=== PATIENT | female | born 1955 | race Caucasian/White ===

== ENCOUNTER → 2019-06-24 | Day surgery (SDC) | payer OTHER, MEDICARE ==
[~2019-06-24] MED LIST: BSS OPTHALMIC SOL 15 ML BOT OPTH ONE; BUPIVACAINE 0.25% PF 10 ML VIAL ONE; CYCLOPENTOLATE 1% OPTH 2 ML ONE; CYCLOPENTOLATE 1% OPTH 2 ML OPTH ONE; FENTANYL CITR 100 MCG/2 ML ONE; LIDOCAINE 2% MPF 5 ML VIAL ONE; LIDOCAINE HCL/PF 3.5% OPTH GEL ONE; MIDAZOLAM HCL 2 MG/2 ML INJ ONE; NA CHLORIDE 0.9% 500 ML ONE; NS 0.9% VIAL 10 ML ONE; PHENYLEPHRINE 10% OPTH 5ML ONE; PHENYLEPHRINE 10% OPTH 5ML OPTH ONE
--- OUTSIDE RECORDS SUMMARY | 2019-06-24 07:38 | XMS REPORT ---
:1955 [facility] Address [address] [place] [address] Dr. Salguero. [address] [place] [id number] Care Team Providers Name Role Phone Unavailable Unavailable Unavailable Problems This patient has no known problems. Allergies, Adverse Reactions, Alerts This patient has no known allergies or adverse reactions. Medications This patient has no known medications.
[2019-06-24] MEDS: LIDOCAINE HCL/PF 3.5% OPTH GEL OPTH ONE ×2 (08:45→09:31)
[2019-06-24] MEDS: BALANCED SALT IRRIG PLAIN 500 ML BTL IRR ONE ×2 (09:50→10:03)
[2019-06-24] MEDS: EPINEPHRINE/PF 1 MG/ML AMP ONE ×2 (09:50→10:03)
[2019-06-24] MEDS: LIDOCAINE 1% MPF 2 ML AMPULE ONE ×2 (09:51→10:03)
[2019-06-24] MEDS: MOXIFLOXACIN HCL 10 DROPS/ML **OR USE OPTH ONE ×2 (09:52→10:06)
[2019-06-24] MEDS: TETRACAINE HCL 0.5% 4ML OPTH ONE ×2 (09:52→09:59)
[2019-06-24] MEDS: DUOVISC 1 KIT OPTH ONE ×2 (09:53→10:05)
--- NOTE | 2019-06-24 10:26 | P.BOP ---
Preoperative diagnosis: Nuclear sclerotic and cortical cataract OS Postoperative diagnosis: Same Primary procedure: Phacoemulsification with IOL OS Estimated blood loss: None Anesthesia: Local (Topical with anesthesia for cataract surgery) Complications: None Implants: ZCB00 +22.5 Transferred to: Other (Day surgery) Condition: Good
--- NOTE | 2019-06-24 21:42 | OP ---
Date of Procedure: 06/24/2019 Surgeon: Jessica Hay MD Anesthesiologist: Chetan Nunes CRNA and Mati Lyn MD Preoperative Diagnosis: Nuclear and cortical cataract, left eye. Operation Performed: Phacoemulsification with intraocular lens implant, left eye. Anesthesia: Per cataract surgery. Complications: None. Description Of Procedure: In day surgery, the patient was prepped with Betadine and draped. A conju nctival incision was made in the inferior nasal quadrant with Ana scissors. A sub-Tenon block c onsisting of a 1:1 mixture of 2% Xylocaine and 0.25% bupivacaine was placed through the conjunctival incision with a blunt cannula. A Honan balloon was placed over the eye and the patient was transferr ed to the operating room. In the operating room the patient was prepped and draped in the usual sterile fashion for ophthalmic surgery. A lid speculum was placed in the left eye. Two paracentesis sites were made superiorly and inferiorly in the limbal cornea. Viscoat was placed in the anterior chamber and a crescent blade wa s used to make a corneal groove and tunnel, and a keratome was used to enter the anterior chamber. P rovisc was placed in the anterior chamber and a 360 degree capsulotomy was performed with a cystitome . The lens was hydrodissected with BSS and rotated freely. The lens was removed with a stop and cho p technique. A 6.04 phaco CDE was used to remove the lens. Residual cortex was removed with the irr igation and aspiration. Provisc was placed in the capsular bag. A ZCB00, +22.5 lens was placed in t he capsular bag without complications. Irrigation and aspiration were used to remove residual viscoe lastic. The paracentesis sites were hydrated with BSS. The wound and paracentesis sites were inspec kwame and found to be watertight. Vigamox 0.07 cc was placed intracamerally at the end of the procedur e. The eye was irrigated with balanced salt solution. The eye was patched with a soft cotton patch and Ramsey metal shield. The patient was returned to day surgery in good condition. Comments: Akten was placed in the eye in Day Surgery and irrigated out of the eye with BSS in the OR . Preservative-free 1% lidocaine was placed in the anterior chamber prior to Viscoat. Discharge Instructions: Ms. Bolton was discharged to home in good condition. She is to follow up [facility] Dr. Hay. JAIDEN/DENNYS Voice ID: [id number] Report ID: [id number]
== END | disposition home or self-care (01) ==
LOC: OR 07:34
PROVIDERS: ATTEND Ophthalmology Retina Specialist
PROC: 08RK3JZ Replacement of Left Lens with Synthetic Substitute, Percutaneous Approach (ICD-10-PCS; principal; 2019-06-24 09:30)
DX: H25.12 Age-related nuclear cataract, left eye (principal); H25.012 Cortical age-related cataract, left eye; J44.9 Chronic obstructive pulmonary disease, unspecified; M79.7 Fibromyalgia; E07.9 Disorder of thyroid, unspecified; E78.00 Pure hypercholesterolemia, unspecified; M19.90 Unspecified osteoarthritis, unspecified site; G25.81 Restless legs syndrome; Z87.891 Personal history of nicotine dependence; Z82.49 Family history of ischemic heart disease and other diseases of the circulatory system; Z83.3 Family history of diabetes mellitus; Z80.9 Family history of malignant neoplasm, unspecified
CPT/HCPCS: 66984; J0171; J2250; J3010; J2001

== ENCOUNTER 2021-10-11 13:24 | Emergency (ER) | payer OTHER, MEDICARE ==
--- OUTSIDE RECORDS SUMMARY | 2021-10-11 13:27 | XMS REPORT | Continuity of Care Document ---
:1955 Author Organization [facility] t Address [address] [place] [address] Care Team Providers Name Role Phone Simone Fisher MD Primary Care Physician Nic SPIVEY Attending Clinician Unavailable Nic Spivey MD Attending Clinician Payers Payer Name Policy Type Policy Number Effective Date Expiration Date S ourmax MEDICARE PART A \T\ [id number] 2018 B 00:00:00 [facility] [id number] 2020 MEDICARE SUPPLEMENT 00:00:00 Problems Condition Condition Condition Status Onset Resolution Last Treating Co mments Source Name Details Category Date Date Treatment Clinician Date COPD COPD Disease Active 2015-11 Univers exacerbati exacerbati 2-02 it y of on on 00:00: [address] COPD COPD Disease Active 2015-11 Univers (chronic (chronic 2-02 [place] Medical pulmonary pulmonary Bran ch disease) disease) Allergies, Adverse Reactions, Alerts Allergy Allergy Status Severity Reaction(s) Onset Inactive Treating Comm ents Source Name Type Date Date Clinician CLOBETAS DRUG Active Rash Univers OL-EMOLL 7-17 ity of IENT 00:00: [address] Cl[place] Propensi Active Rash Univer s ol-Emoll ty to 717 ity of ient adverse 00:00: [place] reaction 00 Medical s Branch Social History Social Habit Start Date Stop Date Quantity Comments Source History of tobacco Cigarette Smoker University of use [facility] Exposure to Not sure University of SARS-CoV-2 (event) [facility] Alcohol intake 2021-10-08 2021-10-08 0 /d University of 00:00:00 00:00:00 [facility] Cigarettes smoked 2021-04-26 2021-04-26 Univers ity of current (pack per 00:00:00 00:00:00 [place] ) - Reported Branch Tobacco use and 2021-04-26 2021-04-26 Never used Universit y of exposure 00:00:00 00:00:00 [facility] Tobacco Comment 2021-04-26 2021-04-26 Univer sity of 00:00:00 00:00:00 [facility] Sex Ass[birth year] Universit y of 00:00:00 00:00:00 [facility] Smoking Status Start Date Stop Date Source Former smoker 2021-04-26 00:00:00 2021-04-26 00:00:00 Universi ty of [facility] Medications Ordered Filled Start Stop Current Ordering Indication Dosage Frequency Signature Comments Components Source Medication Medication Date Date Medication? Clinician (SIG) Name Name CLONAZEPAM Yes Take by Uni vers ORAL 6-09 mouth. ity of 08:43: [address] GABAPENTIN Yes 1600mg Take 1,600 Univers ORAL 6-09 mg by ity of 08:43: mouth [place] [address] daily. [facility] THYROID,POR Yes 135mg Take 135 U nivers K (ARMOUR 6-09 mg by ity of THYROID 08:43: mouth. [place] ORAL) [address] [place] [address] tiotropium Yes 1{puff} Inhale 1 Univers bromide 6-09 Puff. ity of (SPIRIVA 08:43: [place] RESPIMAT) Medical 2.5 [place] mcg/actuati on Mist montelukast Yes 10mg Take 10 mg Univers (SINGULAIR) 6-09 by mouth ity of 10 mg 08:43: daily. [place] tablet [address] [place] [address] aspirin 81 Yes 81mg Take 81 mg U nivers mg chewable 6-09 by mouth ity of tablet 08:43: daily. [address] CLONAZEPAM Yes Take by Uni vers ORAL 6-09 mouth. ity of 08:43: [place] [address] Medical Branch GABAPENTIN Yes 1600mg Take 1,600 Univers ORAL 6-09 mg by ity of 08:43: mouth [place] 25 daily. Medical Branch THYROID,POR Yes 135mg Take 135 U nivers K (ARMOUR 6-09 mg by ity of THYROID 08:43: mouth. [place] ORAL) 25 Medical Branch tiotropium Yes 1{puff} Inhale 1 Univers bromide 6-09 Puff. ity of (SPIRIVA 08:43: [place] RESPIMAT) Medical 2.5 Branch mcg/actuati on Mist montelukast Yes 10mg Take 10 mg Univers (SINGULAIR) 6-09 by mouth ity of 10 mg 08:43: daily. [place] tablet Medical Branch aspirin 81 Yes 81mg Take 81 mg U nivers mg chewable 6-09 by mouth ity of tablet 08:43: daily. [place] [address] Medical Branch ALPRAZolam 2015-11 Yes 1mg Take 1 Unive rs (XANAX) 1 2-06 tablet by ity o f mg tablet 00:00: mouth 3 [place] 00 (three) Medical times Branch daily as needed (anxiety). ipratropium 2015-11 Yes .5mg Inhale 2.5 Univers (ATROVENT) 2-06 mL every 2 ity of 0.02 % 00:00: (two) [place] nebulizer 00 hours as Medica l solution needed for Branc h Wheezing or Shortness of Breath. albuterol 2015-11 Yes 2.5mg Inhale 3 Uni vers (PROVENTIL) 2-06 mL every 6 it y of 2.5 mg /3 00:00: (six) [place] mL (0.083 00 hours as Medica l %) needed for Branch nebulizer Wheezing solution or Shortness of Breath. codeine-gua 2015-11 Yes 5mL Take 5 mL U nivers ifenesin 2-06 by mouth ity of (ROBITUSSIN 00:00: every 4 [place] AC) 10-100 00 (four) Medical mg/5 mL hours as Branch solution needed for Cough. predniSONE 2015-11 Yes 10mg Take 1 Unive rs (DELTASONE) 2-06 tablet by ity of 10 mg 00:00: mouth [place] tablet 00 daily. Medical Branch ALPRAZolam 2015-11 Yes 1mg Take 1 Unive rs (XANAX) 1 2-06 tablet by ity o f mg tablet 00:00: mouth 3 [place] 00 (three) Medical times Branch daily as needed (anxiety). ipratropium 2015- Yes .5mg Inhale 2.5 Univers (ATROVENT) 2-06 mL every 2 ity of 0.02 % 00:00: (two) [place] nebulizer 00 hours as Medica l solution needed for Branc h Wheezing or Shortness of Breath. albuterol 2015-11 Yes 2.5mg Inhale 3 Uni vers (PROVENTIL) 2-06 mL every 6 it y of 2.5 mg /3 00:00: (six) [place] mL (0.083 00 hours as Medica l %) needed for Branch nebulizer Wheezing solution or Shortness of Breath. codeine-gua 2015-11 Yes 5mL Take 5 mL U nivers ifenesin 2-06 by mouth ity of (ROBITUSSIN 00:00: every 4 [place] as AC) 10-100 00 (four) Medical mg/5 mL hours as Branch solution needed for Cough. predniSONE 2015-11 Yes 10mg Take 1 Unive rs (DELTASONE) 2-06 tablet by ity of 10 mg 00:00: mouth [place] tablet 00 daily. [facility] Vital Signs Vital Name Observation Time Observation Value Comments Source Body height 2021-10-08 14:55:00 175.3 cm [facility] Body weight 2021-10-08 14:55:00 97.523 kg [facility] BMI 2021-10-08 14:55:00 31.75 kg/m2 [facility] Procedures This patient has no known procedures. Encounters Start End Encounter Admission Attending Care Care Encounter Source Date/Time Date/Time Type Type Clinicians Facility Department ID 2021-10-08 2021-10-08 Outpatient R [facility] [id number] Univers 09:05:00 23:59:00 CECILIO [facility] 2021-10-08 2021-10-08 [facility] Patric [facility] [id number] Univers 09:05:00 23:59:00 Encounter Cceilio [facility] [id number] ity of [place] [id number] [place] as JONATHON?BLEA [id number] Sc mode DESOUZA 809 [facility] OFFICE BUILDING 2021-10-08 2021-10-08 Office Spivey [facility] [id number] Univers 08:47:57 09:22:20 Visit [facility] 350...[address] [facility] [id number] [place] as JONATHON?BLEA [id number] Sc mode DESOUZA 198 [facility] OFFICE BUILDING Results This patient has no known results.
[2021-10-11] MEDS ORDERED: HYDROCODONE/APAP 10/325 TAB ONE (16:24)
--- NOTE | 2021-10-11 17:18 | ER ---
Nurse's Notes [facility] Name: Ariella Bolton Age: 66 yrs Sex: Female : 1955 Arrival Date: 10/11/2021 Time: 13:26 Bed Treatment Private MD: Diagnosis: Pain in right shoulder Presentation: 10/11 13:47 Chief complaint: Patient states: right shoulder pain, pt states "my doctor gave me a aa5 shot last Monday for it but it's been hurting worse". Denies injury to right shoulder. Pt reports pain radiates down right arm. Coronavirus screen: At this time, the client does not indicate any symptoms associated with coronavirus-19. Ebola Screen: No symptoms or risks identified at this time. Initial Sepsis Screen: Does the patient meet any 2 criteria? No. Patient's initial sepsis screen is negative. Does the patient have a suspected source of infection? No. Patient's initial sepsis screen is negative. Risk Assessment: Do you want to hurt yourself or someone else? Patient reports no desire to harm self or others. Onset of symptoms was September 2021. 13:47 Method Of Arrival: Ambulatory aa5 13:47 Acuity: AKI 4 aa5 Historical: - Allergies: 13:49 UNKNOWN CREAM; aa5 - PMHx: 13:49 Arthritis; Diverticulitis; Fibromyalgia; tinnitus; Thyroid problem; aa5 - Immunization history:: Client reports receiving the 2nd dose of the Covid vaccine. - Social history:: Smoking status: Patient/guardian denies using tobacco. Screenin:00 Abuse screen: Denies threats or abuse. Denies injuries from another. Nutritional ld1 screening: No deficits noted. Tuberculosis screening: No symptoms or risk factors identified. Fall Risk None identified. Assessment: 16:00 General: Appears in no apparent distress. comfortable, Behavior is calm, cooperative, ld1 appropriate for age. Pain: Complains of pain in posterior aspect of right shoulder Pain radiates to right arm Pain currently is 8 out of 10 on a pain scale. Quality of pain is described as throbbing, Pain began gradually, Is continuous. Neuro: Level of Consciousness is awake, alert, obeys commands, Oriented to person, place, time, situation. Cardiovascular: Capillary refill < 3 seconds Patient's skin is warm and dry. Respiratory: Airway is patent Respiratory effort is even, unlabored, Respiratory pattern is regular, symmetrical. GI: Abdomen is flat, non-distended. : No signs and/or symptoms were reported regarding the genitourinary system. EENT: No signs and/or symptoms were reported regarding the EENT system. Derm: No signs and/or symptoms reported regarding the dermatologic system. Musculoskeletal: Reports pain in posterior aspect of right shoulder. Vital Signs: 13:47 BP 150 / 74; Pulse 88; Resp 18 S; Temp 97.8(TE); Pulse Ox 97% on 2 lpm NC; Weight 97.98 aa5 kg (R); Height 5 ft. 9 in. (175.26 cm) (R); 16:00 BP 147 / 69; Pulse 85; Resp 18; Pulse Ox 98% on R/A; Pain 8/10; ld1 13:47 Body Mass Index 31.90 (97.98 kg, 175.26 cm) aa5 ED Course: 13:26 Patient arrived in ED. ds1 13:46 Arm band placed on. aa5 13:49 Triage completed. aa5 15:53 Branden Neal, CRISTOFER is PHCP. pm1 15:53 Keshav Bone MD is Attending Physician. pm1 16:00 Patient has correct armband on for positive identification. Bed in low position. Call ld1 light in reach. Side rails up X2. school lunch monitor on. Pulse ox on. NIBP on. Door closed. Noise minimized. 16:00 No provider procedures requiring assistance completed. ld1 16:23 Yareli Riggs, HENRIQUE is Primary Nurse. ld1 16:54 Elbow Right 3 View XRAY In Process Unspecified. EDMS 17:11 Shoulder Right (2 View) XRAY In Process Unspecified. EDMS 17:16 Cecilio Sunshine MD is Referral Physician. pm1 17:48 Patient did not have IV access during this emergency room visit. ld1 Administered Medications: 16:27 Drug: HYDROcodone-acetaminophen 10 mg-325 mg 1 tabs Route: PO; ld1 16:27 Follow up: Response: No adverse reaction ld1 Outcome: 17:17 Discharge ordered by . pm1 17:48 Discharged to home ambulatory, with family. ld1 17:48 Condition: stable 17:48 Discharge instructions given to patient, family, Instructed on discharge instructions, follow up and referral plans. medication usage, Demonstrated understanding of instructions, follow-up care, medications, Prescriptions given X 1. 17:49 Patient left the ED. ld1 Signatures: Dispatcher [employer] EDWV Lurdes Mitchell ds1 Elaine Mullins, RN RN aa5 Branden Neal, WEDDING FLORIST WEDDING FLORIST pm1 Yareli Riggs RN RN ld1 Corrections: (The following items were deleted from the chart) 13:50 13:47 Pulse 88bpm; Resp 18bpm; Spontaneous; Pulse Ox 97% 2 lpm Nasal Cannula; Temp aa5 97.8F Temporal; 97.98 kg Reported; Height 5 ft. 9 in. Reported; BMI: 31.9; aa5
--- NOTE | 2021-10-11 17:18 | EDPHYS ---
Physician Documentation [facility] Name: Ariella Bolton Age: 66 yrs Sex: Female : 1955 Arrival Date: 10/11/2021 Time: 13:26 Bed Treatment Private MD: ED Physician Keshav Bone HPI: 10/11 16:14 This 66 yrs old Female presents to ER via Ambulatory with complaints of pm1 Arm/Shoulder Pain. 16:14 The patient or guardian complains of pain. right shoulder. Context: resulted from pm1 repetitive motion, possibly mopping, The patient reports no obvious deformity. Decreased ROM due to pain. Onset: The symptoms/episode began/occurred 2 week(s) ago. Modifying factors: the symptoms are alleviated by remaining still, The symptoms are aggravated by movement. Associated signs and symptoms: Pertinent positives: pain radiation to right hand, Pertinent negatives: chest pain, shortness of breath. Severity of symptoms: in the emergency department the symptoms are unchanged. Treatment prior to arrival includes: no previous treatment. The patient has experienced a previous episode, Feels similar to prior bursitis of shoulder. The patient has been recently seen by a physician: Dr. Spivey orthopedics and received steroid IM to right shoulder. Reports no improvement in her pain. Historical: - Allergies: 13:49 UNKNOWN CREAM; aa5 - PMHx: 13:49 Arthritis; Diverticulitis; Fibromyalgia; tinnitus; Thyroid problem; aa5 - Immunization history:: Client reports receiving the 2nd dose of the Covid vaccine. - Social history:: Smoking status: Patient/guardian denies using tobacco. ROS: 16:14 Constitutional: Negative for fever, chills, and weight loss, Cardiovascular: Negative pm1 for chest pain, palpitations, and edema, Respiratory: Negative for shortness of breath, cough, wheezing, and pleuritic chest pain, Abdomen/GI: Negative for abdominal pain, nausea, vomiting, diarrhea, and constipation. 16:14 Skin: Negative for injury, rash, and discoloration, Neuro: Negative for headache, weakness, numbness, tingling, and seizure. 16:14 MS/extremity: Positive for pain, of the right shoulder, Negative for injury or acute deformity, deformity. 16:14 All other systems are negative. Exam: 16:14 Constitutional: This is a well developed, well nourished patient who is awake, alert, pm1 and in no acute distress. Head/Face: Normocephalic, atraumatic. 16:14 Skin: Warm, dry with normal turgor. Normal color with no rashes, no lesions, and no evidence of cellulitis. 16:14 Cardiovascular: Exam negative for acute changes, Rate: normal, Rhythm: regular, Pulses: no pulse deficits are appreciated, Heart sounds: normal. 16:14 Respiratory: Exam negative for acute changes, respiratory distress, shortness of breath. 16:14 Musculoskeletal/extremity: ROM: limited active range of motion due to pain, in the right shoulder, limited passive range of motion due to pain, in the right shoulder, Circulation is intact in all extremities. the right hand Sensation intact. 16:14 Neuro: Exam negative for acute changes, Orientation: is normal, Mentation: is normal, Motor: is normal, moves all fours. Vital Signs: 13:47 BP 150 / 74; Pulse 88; Resp 18 S; Temp 97.8(TE); Pulse Ox 97% on 2 lpm NC; Weight 97.98 aa5 kg (R); Height 5 ft. 9 in. (175.26 cm) (R); 16:00 BP 147 / 69; Pulse 85; Resp 18; Pulse Ox 98% on R/A; Pain 8/10; ld1 13:47 Body Mass Index 31.90 (97.98 kg, 175.26 cm) aa5 MDM: 15:54 Patient medically screened. pm1 17:16 Data reviewed: vital signs. Data interpreted: Pulse oximetry: on room air is 98 %. pm1 Interpretation: normal. Counseling: I had a detailed discussion with the patient and/or guardian regarding: the historical points, exam findings, and any diagnostic results supporting the discharge/admit diagnosis, radiology results, the need for outpatient follow up, a orthopedic surgeon, to return to the emergency department if symptoms worsen or persist or if there are any questions or concerns that arise at home. 10/11 16:14 Order name: Shoulder Right (2 View) XRAY; Complete Time: 17:37 pm1 10/11 16:45 Order name: Elbow Right 3 View XRAY; Complete Time: 17:37 pm1 Administered Medications: 16:27 Drug: HYDROcodone-acetaminophen 10 mg-325 mg 1 tabs Route: PO; ld1 16:27 Follow up: Response: No adverse reaction ld1 Disposition: 10/12 12:35 Co-signature as Attending Physician, Keshav Bone MD I agree with the assessment and kdr plan of care. Disposition Summary: 10/11/21 17:17 Discharge Ordered Location: Home pm1 Problem: new pm1 Symptoms: have improved pm1 Condition: Stable pm1 Diagnosis - Pain in right shoulder pm1 Followup: pm1 - With: Cecilio Spivey MD - When: 2 - 3 days - Reason: Recheck today's complaints, Continuance of care, Re-evaluation by your physician Discharge Instructions: - Discharge Summary Sheet pm1 - Shoulder Pain pm1 Forms: - Medication Reconciliation Form pm1 - Thank You Letter pm1 - Antibiotic Education pm1 - Prescription Opioid Use pm1 Prescriptions: - Tramadol 50 mg Oral Tablet - take 1 tablet by ORAL route every 8 hours as needed; 12 tablet; Refills: 0, pm1 Product Selection Permitted Signatures: Dispatcher [employer] EDMS Keshav Bone MD MD [facility] Elaine Mullins RN RN aa5 Branden Neal NP SURVEY INTERVIEWER pm1 Yareli Riggs, RN RN ld1
--- NOTE | 2021-10-11 17:33 | RAD REPORT ---
EXAM DESCRIPTION: RAD - Shoulder Right 2 View - 10/11/2021 5:11 pm CLINICAL HISTORY: Right shoulder pain FINDINGS: No fracture or dislocation is seen. Mild narrowing of AC joint
--- NOTE | 2021-10-11 17:34 | RAD REPORT ---
EXAM DESCRIPTION: RAD - Elbow Right 3 View - 10/11/2021 4:54 pm CLINICAL HISTORY: Elbow pain FINDINGS: No fracture or dislocation is seen. Mild degenerative changes involve the lateral aspect of elbow.
[2021-10-11 17:59] VITALS: TEMP 97.8
[2021-10-11 18:00] VITALS: BP 147/69; O2SAT 98
== END 2021-10-11 17:49 | disposition home or self-care (01) ==
LOC: ER 13:24
DX: M25.511 Pain in right shoulder (principal)
CPT/HCPCS: 99284

== ENCOUNTER 2022-04-19 06:30 | Day surgery (SDC) | payer OTHER, MEDICARE ==
[2022-04-15 09:45] LABS: Absolute Lymphocytes (CBC) 2.4 K/uL (0.7-4.9); Hematocrit 46.4 % (36.0-45.0); Lymphocytes % 32.2 % (15.3-44.8); MPV 8.7 fL (7.6-11.3); RBC Red Blood Cell Count 5.55 M/uL (3.86-4.86)
[2022-04-15 09:53] LABS: Potassium 3.9 mmol/L (3.5-5.1)
[2022-04-15 09:54] LABS: Protime INR 1.1
--- NOTE | 2022-04-15 10:18 | RAD REPORT ---
EXAM DESCRIPTION: Andrea Mackey (2 Views)04/15/2022 9:43 am CLINICAL HISTORY: Preop COMPARISON: None FINDINGS: The lungs appear clear of acute infiltrate. The heart is normal size IMPRESSION: No acute abnormalities displayed
[~2022-04-19 06:30] MED LIST changes: -BSS OPTHALMIC SOL 15 ML BOT OPTH ONE; -BUPIVACAINE 0.25% PF 10 ML VIAL ONE; -CYCLOPENTOLATE 1% OPTH 2 ML ONE; -CYCLOPENTOLATE 1% OPTH 2 ML OPTH ONE; -FENTANYL CITR 100 MCG/2 ML ONE; +HEPA 1000U/500MLS 0 UNIT/0 ML BAG IV ONE; -LIDOCAINE 2% MPF 5 ML VIAL ONE; -LIDOCAINE HCL/PF 3.5% OPTH GEL ONE; -MIDAZOLAM HCL 2 MG/2 ML INJ ONE; -NA CHLORIDE 0.9% 500 ML ONE; -NS 0.9% VIAL 10 ML ONE; -PHENYLEPHRINE 10% OPTH 5ML ONE; -PHENYLEPHRINE 10% OPTH 5ML OPTH ONE
[2022-04-19] MEDS ORDERED: HEPA 1000U/500MLS 1,000 UNIT/500 ML BAG IV ONE ×2 (06:41)
[2022-04-19] MEDS ORDERED: LIDOCAINE 1% MPF 5 ML VIAL ONE (06:42)
[2022-04-19] MEDS ORDERED: FENTANYL CITR 100 MCG/2 ML ONE (06:44)
[2022-04-19] MEDS ORDERED: MIDAZOLAM HCL 2 MG/2 ML INJ ONE ×2 (06:45→07:36)
[2022-04-19] MEDS ORDERED: NA CHLORIDE 0.9% 0 ML ONE (06:45)
[2022-04-19] MEDS ORDERED: ATROPINE SULF 1 MG/10 ML SYR IV ONE (06:45)
[2022-04-19] MEDS ORDERED: NITROGLYCERIN 100 MCG/ML SYR (for cath lab use only) IV ONE (06:46)
[2022-04-19] MEDS ORDERED: NITROGLYCERIN/D5W 25 MG/250 ML BTL IV ONE (06:46)
[2022-04-19] MEDS ORDERED: NA CHLORIDE 0.9% 500 ML ONE ×2 (07:02→09:40)
--- NOTE | 2022-04-19 08:13 | OP ---
Surgeon: Vishal Vail MD Throat Cutter: Janette Contreras. Admitted to my service as an outpatient on 04/19/2022. Reason For Admission: Abdominal angiogram with runoff. Indication: Peripheral arterial disease, positive Doppler, and claudication of bilateral legs. Procedure In Detail: In the laborer airport maintenance, the patient was prepped and draped in routine sterile fashion. Given Versed and fentanyl for sedation. A 6-Greek sheath introduced in the right common femoral a rtery successfully. Angiography there was normal. StarClose was used to close the case. A pigtail catheter was advanced above the renals. Abdominal angiogram with runoff showed a normal renals, smal l abdominal aortic aneurysm infrarenal just above the iliac bifurcation. There was about 50% stenosi s in the right common iliac artery, about a 30% stenosis in the left common iliac artery. There were some diffuse distal disease below the knee. Total conscious sedation was 30 minutes. The patient t olerated the procedure well. There were no complications. Blood loss was 5 mL. Postoperative Diagnosis: Moderate peripheral arterial disease. Continue medical therapy. She is on aspirin and statin. I will consider the use of Trental or maybe low-dose Xarelto. The patient can go home after 2 hours of bedrest and I will see her in the office in 2 weeks. CLARI/DENNYS Voice ID: [id number] Report ID: [id number]
[2022-04-19 10:03] VITALS: O2SAT 97
[2022-04-19 10:50] VITALS: BP 107/55
== END 2022-04-19 10:50 | disposition home or self-care (01) ==
LOC: CCL 06:30
DX: I70.213 Atherosclerosis of native arteries of extremities with intermittent claudication, bilateral legs (principal); I71.4 Abdominal aortic aneurysm, without rupture; I65.23 Occlusion and stenosis of bilateral carotid arteries; I10 Essential (primary) hypertension; E78.2 Mixed hyperlipidemia; J44.1 Chronic obstructive pulmonary disease with (acute) exacerbation; M79.7 Fibromyalgia; E03.9 Hypothyroidism, unspecified; E66.9 Obesity, unspecified; Z68.31 Body mass index [BMI] 31.0-31.9, adult; Z79.82 Long term (current) use of aspirin; Z79.899 Other long term (current) drug therapy; Z20.822 Contact with and (suspected) exposure to COVID-19; Z82.49 Family history of ischemic heart disease and other diseases of the circulatory system
CPT/HCPCS: 85025; 80048; 36415; 85610; 85730; 71046; 36200; 75630; U0003; C1893; J2250 ×2; J3010; J7040 ×2; J1644 ×2; J0583

== ENCOUNTER 2023-07-03 10:00 | Day surgery (SDC) | payer OTHER, MEDICARE ==
[2023-06-27 15:23] LABS: Absolute Lymphocytes (CBC) 2.2 K/uL (0.7-4.9); Lymphocytes % 27.5 % (15.3-44.8); MCV 84.4 fL (80-100); MPV 9.2 fL (7.6-11.3); Platelets 258 thou/uL (152-406); RBC Red Blood Cell Count 5.81 M/uL (3.86-4.86)
[2023-06-27 15:27] LABS: Protime INR 1.1
[2023-06-27 15:37] LABS: Potassium 3.2 mEq/L (3.5-5.1)
--- NOTE | 2023-06-27 18:34 | RAD REPORT ---
EXAM DESCRIPTION: RAD - Chest Pa And Lat (2 Views) - 06/27/2023 3:06 pm CLINICAL HISTORY: Pre op pending abdominal angiogram. Hypertension COMPARISON: Chest Pa And Lat (2 Views) dated 04/15/2022 TECHNIQUE: PA and lateral views of the chest were obtained. FINDINGS: The lungs are clear. Heart size is normal and central vasculature is within normal limits. No pleural effusion or pneumothorax seen. No acute bony finding noted. IMPRESSION: No acute cardiopulmonary process.
--- NOTE | 2023-06-28 18:09 | EKG ---
Test Date: 2023-06-27 Test Time: 14:46:52 Mail Teller: ET MEASUREMENT RESULTS: Intervals: Rate: 62 CA: 154 QRSD: 96 QT: 428 QTc: 434 [facility]: P: 68 CA: 154 QRS: 65 T: 83 INTERPRETIVE STATEMENTS: Normal sinus rhythm Nonspecific ST abnormality Abnormal ECG No previous ECG available for comparison Electronically Signed On 06-28-23 18:07:42 CDT by Robin Jhaveri
[2023-07-03] MEDS ORDERED: NA CHLORIDE 0.9% 500 ML ONE ×2 (10:27→11:22)
[2023-07-03] MEDS ORDERED: FENTANYL CITR 100 MCG/2 ML ONE (10:35)
[2023-07-03] MEDS ORDERED: LIDOCAINE 1% 20 ML MDV ONE (10:35)
[2023-07-03] MEDS ORDERED: HEPA 1000U/500MLS 2,000 UNIT/1,000 ML BAG IV ONE (10:35)
[2023-07-03] MEDS ORDERED: NITROGLYCERIN 100 MCG/ML SYR (for cath lab use only) IV ONE (10:36)
[2023-07-03] MEDS ORDERED: MIDAZOLAM HCL 2 MG/2 ML INJ ONE (10:36)
[2023-07-03] MEDS ORDERED: HEPARIN 5000 UNIT/ML 1 ML VIAL ONE (10:36)
[2023-07-03] MEDS ORDERED: VERAPAMIL HCL 10 MG/4 ML VIAL IV ONE (10:36)
[2023-07-03] MEDS ORDERED: ATROPINE SULF 1 MG/10 ML SYR IV ONE ×2 (10:37→11:34)
[2023-07-03 12:59] VITALS: TEMP 97
--- NOTE | 2023-07-03 13:30 | OP ---
Date of Procedure: 07/03/2023 Surgeon: ATIF DALTON Procedure Performed: Peripheral angiogram with runoff. Indication: Peripheral vascular disease with claudication. Access: Right radial artery 6-Niuean closed with TR band. Complications: None. Bleeding: Less than 50 mL. Anesthesia: Total sedation time was 30 minutes, used fentanyl and Versed. Description Of Procedure: After risks, benefits, alternatives were explained, the patient agreed to procedure and signed informed consent. The [facility], prepped and draped in the usual sterile fashion. Then, I accessed right radial artery using pediatric micropuncture kit, placed 6-Niuean Slender sheath and then took 5-Niuean [place] 4.0 catheter into the aortic root and using this catheter, I directed the wire into the descending aorta and then exchanged for a 4-Niuean long pigtail catheter that was placed into distal aorta and then performed distal aortogram with runoff. Then, I removed the catheter and sheath, placed TR band with good hemo stasis. Findings: 1.Distal aorta is aneurysmal. 2.The right lower extremity; the ostial and proximal right common iliac artery is severely stenosed around 80% and heavily calcified. Then, the right external iliac, right common femoral, the right SF A, right profunda, and below the knee circulation they were all intact. No significant stenosis. 3.Left lower extremity; there is no significant disease involving the common iliac, external iliac, femoral profunda, SFA, or below the knee. Conclusion: 1.Severe ostial and proximal right common iliac stenosis that is heavily calcified. 2.Distal aorta aneurysm. Plan: Shock wave lithotripsy of the ostial iliac artery on the right followed likely by a stent plac gill to be done in [place] in about 4 weeks's time. SR/MODL Voice ID: [id number] Report ID: [id number]
[2023-07-03 14:28] VITALS: O2SAT 94
[2023-07-03 15:58] VITALS: BP 135/57
== END 2023-07-03 15:15 | disposition home or self-care (01) ==
LOC: CCL 10:00
PROVIDERS: ATTEND Internal Medicine
DX: I70.211 Atherosclerosis of native arteries of extremities with intermittent claudication, right leg (principal); I25.10 Atherosclerotic heart disease of native coronary artery without angina pectoris; I71.40 Abdominal aortic aneurysm, without rupture, unspecified; I10 Essential (primary) hypertension; E78.2 Mixed hyperlipidemia; I65.23 Occlusion and stenosis of bilateral carotid arteries; Z87.891 Personal history of nicotine dependence; Z79.899 Other long term (current) drug therapy; Z88.8 Allergy status to other drugs, medicaments and biological substances; Z82.49 Family history of ischemic heart disease and other diseases of the circulatory system
CPT/HCPCS: 36200; 36415; 71046; 75630; 76937; 80048; 85025; 85610; 85730; 93005; C1893; J0461; J1644; J2001; J2250; J3010; J7040; Q9967

== ENCOUNTER 2025-01-07 06:44 | Day surgery (SDC) | payer OTHER, MEDICARE ==
[2025-01-03 12:58] LABS: Absolute Basophils 0.1 K/uL (0-0.5); Absolute Eosinophils 0.1 K/uL (0-0.5); Absolute Lymphocytes (CBC) 1.6 K/uL (0.7-4.9); Absolute Neutrophil 7.5 K/uL (1.8-8.0); Basophils % 0.8 % (0-1.3); Eosinophils % 0.7 % (0-4.4); Hematocrit 37.5 % (36.0-45.0); Hemoglobin 12.4 g/dL (12.0-15.0); Lymphocytes % 15.9 % (15.3-44.8); MCH 28.6 pg (27.0-35.0); MCHC 33.1 g/dL (32.0-36.0); MCV 86.3 fL (80-100); MPV 7.9 fL (7.6-11.3); Monocytes % 9.6 % (3.3-12.3); Nucleated Red Blood Cells % 0.1 % (0-0); Platelets 355 thou/uL (152-406); RBC Red Blood Cell Count 4.34 M/uL (3.86-4.86); Red Cell Distribution Width 18.6 % (12.1-15.2)
[2025-01-03 13:08] LABS: PT Prothrombin Time 12.7 SECONDS (9.4-12.5); PTT, Activated Partial Thromb 40.5 SECONDS (24.3-36.9); Protime INR 1.21
[2025-01-03 13:14] LABS: Anion Gap 8.2 mEq/L (5.0-15.0); Potassium 3.2 mEq/L (3.5-5.1)
--- NOTE | 2025-01-03 13:25 | RAD REPORT ---
Procedure: Chest Pa And Lat (2 Views) HISTORY: Preop for cardiac catheterization. COMPARISON: 2022 FINDINGS: The lungs appear clear of acute infiltrate. No significant pleural effusion noted. The heart is mildly enlarged. IMPRESSION: No acute abnormality is displayed.
[2025-01-07] MEDS ORDERED: NA CHLORIDE 0.9% 500 ML ONE (06:46)
[2025-01-07] MEDS ORDERED: NITROGLYCERIN/D5W 50 MG/250 ML BTL IV ONE (06:51)
[2025-01-07] MEDS ORDERED: HEPA 1000U/500MLS 2,000 UNIT/1,000 ML BAG IV ONE (06:51)
[2025-01-07] MEDS ORDERED: ATROPINE SULF 1 MG/10 ML SYR IV ONE (06:52)
[2025-01-07] MEDS ORDERED: FENTANYL CITR 100 MCG/2 ML ONE (06:52)
[2025-01-07] MEDS ORDERED: NALOXONE 0.4 MG/ML VIAL ONE (06:52)
[2025-01-07] MEDS ORDERED: FLUMAZENIL 0.1 MG/ML (5 mL VIAL) IV ONE (06:52)
[2025-01-07] MEDS ORDERED: HEPARIN 10,000 UNIT/10 ML VIAL IV ONE (06:52)
[2025-01-07] MEDS ORDERED: MIDAZOLAM HCL 2 MG/2 ML INJ ONE (06:52)
[2025-01-07] MEDS ORDERED: LIDOCAINE 1% 20 ML MDV ONE (06:53)
[2025-01-07 08:53] VITALS: TEMP 98.2
[2025-01-07 12:45] VITALS: BP 111/57; O2SAT 94
--- NOTE | 2025-01-10 20:52 | OP ---
Date of Procedure: 01/07/2025 Surgeon: ATIF DALTON Procedures Performed: 1. Peripheral angiogram with runoff. 2. Carotid angiogram. Indications For Procedure: 1. Carotid stenosis. 2. Peripheral vascular disease. Access: Right superficial femoral artery 5-Ecuadorean, closed with manual pressure. Complications: None. Bleeding: Less than 50 mL. Anesthesia: Total sedation time was 1 hour; used fentanyl and versed. Description Of Procedure: After risks, benefits, and alternatives were explained, the patient agreed to the procedure and signed informed consent. The patient was brought into cardiac catheterization laboratory, prepped and draped in usual sterile fashion. Then, I accessed right common femoral arter y using micropuncture kit, ultrasound guidance and fluoroscopy. Placed 5-Ecuadorean [place] sheath and took a 4-Ecuadorean 3DRC catheter, engaged the right common carotid artery, took standard views, and then the left common carotid, took standard views, and then took an Omni Flush catheter in distal aorta, performed distal aortogram and runoff, and then removed the catheter and the sheath and did manual pr essure for closure with good hemostasis. Findings: CAROTID ANGIOGRAM: 1. Right common carotid is normal. Right internal carotid has proximal 70% to 80% stenosis. 2. The left common carotid is normal. Left internal carotid has 40% stenosis. Conclusion: Severe right internal carotid artery stenosis. Recommendation is endarterectomy. PERIPHERAL ANGIOGRAM: 1. Distal aorta is widely patent. 2. Right common iliac and external iliac has 50% diffuse stenosis. Common femoral appears to be norm al. Profunda is patent and the SFA has proximal 60% stenosis. Rest of it is normal. Normal poplite al artery and anterior tibial, posterior tibial, and peroneal are with luminal irregularities. 3. The left lower extremity; the common iliac and external iliac are normal. Common femoral has 40% to 50% stenosis. Profunda is patent. SFA is entirely normal with popliteal artery being normal and the anterior tibial, posterior tibial, and peroneal are all with luminal irregularities. Conclusions: 1. Moderate peripheral vascular disease. 2. Severe right internal carotid artery stenosis. Recommendation would be for endarterectomy. SR/MODL Voice ID: [id number] Report ID: [id number]
--- NOTE | 2025-01-13 12:46 | EKG ---
Test Date: 2025-01-03 Test Time: 13:46:[address] Liaison: LAUREN MEASUREMENT RESULTS: Intervals: Rate: 74 IA: 146 QRSD: 90 QT: 410 QTc: 455 [place]: P: 67 IA: 146 QRS: 67 T: 71 INTERPRETIVE STATEMENTS: Normal sinus rhythm Nonspecific T wave abnormality Abnormal ECG Compared to ECG 06/27/2023 14:46:52 T-wave abnormality now present ST (T wave) deviation no longer present Electronically Signed On 01-13-25 12:23:29 [employer]ERTY [employer] by Dev Jordan
== END 2025-01-07 12:40 | disposition home or self-care (01) ==
LOC: CCL 06:44
PROVIDERS: ATTEND Internal Medicine
DX: I65.23 Occlusion and stenosis of bilateral carotid arteries (principal); I70.223 Atherosclerosis of native arteries of extremities with rest pain, bilateral legs; I25.10 Atherosclerotic heart disease of native coronary artery without angina pectoris; I35.1 Nonrheumatic aortic (valve) insufficiency; I48.0 Paroxysmal atrial fibrillation; I71.43 Infrarenal abdominal aortic aneurysm, without rupture; I10 Essential (primary) hypertension; E78.2 Mixed hyperlipidemia; Z87.891 Personal history of nicotine dependence; Z79.82 Long term (current) use of aspirin; Z79.899 Other long term (current) drug therapy
CPT/HCPCS: 93005; 85025; 80048; 36415; 85610; 85730; 71046; 36200; 75630; 36222; 76937; C1893; J2003; J2250; J3010; J7040; 99152; 99153; J0461; J2310